=== PATIENT | female | born 2000 | race Caucasian/White ===

== ENCOUNTER 2025-02-26 12:50 | Outpatient (RCR) | payer OTHER, SELFPAY ==
[2025-02-26 14:16] LABS: Hematocrit 38.1 % (37.0-47.0); Hemoglobin 12.7 g/dL (12.0-15.0); Immature Granulocyte Percent A 1.5 % (0-0.5); Lymphocytes Absolute Auto 2.27 K/mm3 (0.9-3.2); Mean Corpuscular HGB Conc 33.3 g/dl (32-36); Mean Corpuscular Hemoglobin 29.7 pg (26-34); Mean Corpuscular Volume 89.2 fl (80-100); Nucleated Red Blood Cells Absolute Auto 0.000 K/mm3 (0.0-0.012); Nucleated Red Blood Cells Perc 0.0 % (0.0-0.2); Platelet Count Result 257 k/mm3 (150-375); Red Blood Count 4.27 M/mm3 (4.2-5.4); White Blood Count 14.0 K/mm3 (4.5-10.0)
[2025-02-26 14:20] LABS: Glucose 1 Hour PP 50gm Dose 79 mg/dL
[2025-02-26 14:52] LABS: Syphilis IgG/IgM Antibody Non-Reactive (Nonreactive)
[2025-02-26 15:00] LABS: HIV 1/2 Ab P24 Ag Result Negative (Negative)
[2025-02-27] MEDS: RHO(D) IMMUNE GLOBULIN 300 MCG/2 ML SYRINGE IM (17:42)
== END 2025-05-27 23:59 | disposition home or self-care (01) ==
LOC: ANHLAB 12:50
PROVIDERS: Visit Provider Obstetrics & Gynecology
DX: Z11.4 Encounter for screening for human immunodeficiency virus [HIV] (principal); Z11.3 Encounter for screening for infections with a predominantly sexual mode of transmission; Z29.13 Encounter for prophylactic Rho(D) immune globulin; O36.0190 Maternal care for anti-D [Rh] antibodies, unspecified trimester, not applicable or unspecified; O48.1 Prolonged pregnancy; Z3A.41 41 weeks gestation of pregnancy
CPT/HCPCS: 36415; 82947; 85025; 85461; 86593; 86703; 86850; 86900; 86901; 90384; 96372; G0432; J2790

== ENCOUNTER 2025-05-22 23:09 | Observation (INO) | payer OTHER, SELFPAY ==
[2025-05-22 23:30] VITALS: BMI 36.9
--- NOTE | 2025-05-26 08:59 | PM.OBTRLD ---
OB - Triage/Final Diagnosis Visit Information Comments/Additional reasons for admission: I have assessed the risk for this patient, Tiffany Coleman, and determined that she would benefit from observation care. Final Diagnosis (1) Abdominal pain affecting : Code(s): O26.899 - Other specified related conditions, unspecified trimester; R10.9 - Unspecified abdominal pain Status: Acute
== END 2025-05-23 01:14 | disposition home or self-care (01) ==
PROVIDERS: Admitting Provider Obstetrics & Gynecology; Visit Provider Obstetrics & Gynecology
DX: O26.93 Pregnancy related conditions, unspecified, third trimester (principal); Z3A.40 40 weeks gestation of pregnancy; R10.9 Unspecified abdominal pain
CPT/HCPCS: 59025; G0378; G0379

== ENCOUNTER 2025-05-24 16:32 | Inpatient (IN) | payer OTHER, SELFPAY ==
[2025-05-24] VITALS (117 sets, daily range): BP systolic 75–149; BP diastolic 17–115; PULSE 62–199; TEMP 36.6–37.2; O2SAT 95–100; BMI 36.9
--- NOTE | 2025-05-24 17:03 | PM.IMHP ---
H&P: HPI History of Present Illness Date/Time: 05/24/25 17:03 Chief Complaint: contractions Narrative: Tiffany is a 25yo @ 40.6wks who presented to L&D with painful contractions. She had presented last night and was only found to be 1cm, on arrival today was found to be 4cm. She reports good movement. No VB or LOF. Her is complicated by: - Rh neg; will need rhogam if bleeding and/or at 28wks - GBS positive - Elevated BPs; PIH w/u pending Review of Systems Constitutional: Constitutional: Denies chills, Denies fever(s) and Denies headache(s) Eyes: Eyes: Denies change in vision ENT: Denies headache(s) Cardiovascular: Cardiovascular: Denies chest pain and Denies dyspnea Respiratory: Respiratory: Denies dyspnea Genitourinary: Genitourinary: Denies abnormal vaginal bleeding and Denies vaginal discharge Neurologic: Denies headache(s) Psychiatric: Psychiatric: Denies anxiety and Denies depression [facility] Past Medical History Medical History Suppression of menses Family History Family History Father Diabetes mellitus Grandparent Cerebrovascular accident Alzheimers disease Social History Social History Smoking status: Never smoker Alcohol intake: never Substance use: never Substance use type: does not use Lack of Transportation: No Lack of Food: Never True Current Housing: I Have Housing Concerned About Future Housing: No Difficulty Paying Gas/Electric Bills: No Difficulty Paying for Meds: No Currently Unemployed: No Education: Decline to Answer Difficulty w/ Childcare or Family Care: No Living arrangements: with family Additional living arrangements comments: Occupation/Education: occupation Additional occupation/education comments: [employer] Gender identity (if verbalized by the patient): Female Sexual Orientation (if Verbalized by the Patient): Straight or Heterosexual Spiritual care concerns: No Meds Home Medications and Allergies Home Medications ?Medication ?Instructions ?Recorded ?Confirmed ?Type vitamins-iron fumarate 65 1 tablet PO DAILY 10/16/24 05/24/25 History mg iron-folic acid 1 mg tablet aspirin 81 mg chewable tablet 81 mg PO DAILY 11/12/24 05/24/25 History Allergies Allergy/AdvReac Type Severity Reaction Status Date / Time No Known Allergies Allergy Verified 05/24/25 17:11 Exam Const: General: cooperative, no acute distress and obese Nutritional Appearance: obese Orientation/consciousness: patient oriented x3 Resp: Effort & Inspection: normal respiratory effort Cardio: Rate: regular rate GI: GI Palp: No abdominal tenderness : Other: FHT's: 130's/ mod [place]/ + accels/ variable decels - cat 2 TOCO: ctxs q3-5min Cervix: 4/90/-1, bulging bag Membranes: intact Presentation: cephalic Skin: General skin exam: normal color Neuro: General: patient oriented x3 Extrem: General: normal to inspection Psych: Appearance: grossly normal Affect: normal affect Attitude: cooperative Assessment and Plan Assessment and plan (1) Active labor at term: Status: Acute (2) Positive GBS test: Code(s): B95.1 - Streptococcus, group B, as the cause of diseases classified elsewhere Status: Acute (3) Elevated blood pressure affecting in third trimester, antepartum: Code(s): O16.3 - Unspecified maternal hypertension, third trimester Status: Acute Plan - Admitted in labor - High dose pitocin per protocol if contractions space out - Continuous monitoring - GBS positive; ampicillin per protocol - Anesthesia consult PRN pain - PIH w/u ordered
[2025-05-24 17:15] LABS: Hematocrit 38.3 % (37.0-47.0); Hemoglobin 12.7 g/dL (12.0-15.0); Immature Granulocyte Percent A 0.9 % (0-0.5); Lymphocytes Absolute Auto 1.52 K/mm3 (0.9-3.2); Mean Corpuscular HGB Conc 33.2 g/dl (32-36); Mean Corpuscular Hemoglobin 28.3 pg (26-34); Mean Corpuscular Volume 85.3 fl (80-100); Nucleated Red Blood Cells Absolute Auto 0.000 K/mm3 (0.0-0.012); Nucleated Red Blood Cells Perc 0.0 % (0.0-0.2); Platelet Count Result 262 k/mm3 (150-375); Red Blood Count 4.49 M/mm3 (4.2-5.4); White Blood Count 15.0 K/mm3 (4.5-10.0)
--- NOTE | 2025-05-24 17:17 | LDADM ---
This patient, Tiffany Coleman, was admitted to Labor/Delivery/Recovery 106 on 05/24/25 at 16:32. Plans for labor, pain management and were discussed with patient. Patient/family oriented to hospital policies and general routines including ID bracelet, bed and alarms, visiting hours, pain management, procedures, bathroom and other care routines, personal items, smoking policy, room service/diet and guest tray routines, security routines, and visiting hours. Patient/Family are encouraged to report perceived risks to care and to ask questions if they do not understand what they are told or what they should do. See OBIX for further documentation.
[2025-05-24] MEDS: LACTATED RINGERS 1,000 ML 125 ML IV CONT ×3 (17:20→20:15)
[2025-05-24] MEDS: AMPICILLIN SODIUM 2 GM in SODIUM CHLORIDE 0.9% IV 100 ML 200 ML IVPB (17:20)
[2025-05-24 17:34] LABS: Alanine Aminotransferase 29 U/L (6-35); Albumin Level 3.9 g/dL (3.5-5.1); Alkaline Phosphatase 191 U/L (38-126); Anion Gap 7 mmol/L (4-12); Aspartate Amino Transferase 27 U/L (14-36); Bilirubin,Total 0.4 mg/dL (0.2-1.3); Blood Urea Nitrogen 14 mg/dL (7-17); Calcium 9.3 mg/dL (8.4-10.2); Carbon Dioxide 20 mmol/L (22-30); Chloride 104 mmol/L (98-107); Estimated CRCL calculation 132 ml/min; Estimated Glomerular Filt Rate > 60; Glucose 106 mg/dL (65-110); Potassium 3.9 mmol/L (3.4-5.0); Sodium 131 mmol/L (137-145); Total Protein 7.5 g/dL (6.3-8.2); Uric Acid 5.0 mg/dL (2.5-7.5)
[2025-05-24 18:00] LABS: Syphilis IgG/IgM Antibody Non-Reactive (Nonreactive)
--- NOTE | 2025-05-24 18:38 | WPDANESEPP ---
Anes - Eval Pre Procedure Procedure: Labor Epidural Date/Time: 05/24/25 18:38 Preop Diagnosis: Labor Pain Pre Op Diagnosis: IOL Patient Data Age: 25 Gender: F Height: 1.63 m Weight: 97.6 kg Last Vital Signs Temp 37.2 C 05/24/25 17:00 Pulse 80 05/24/25 18:04 BP 112/83 05/24/25 18:04 Pulse Ox 95 05/24/25 17:31 O2 Del Method Room Air 05/24/25 17:15 Allergies Allergy/AdvReac Type Severity Reaction Status Date / Time No Known Allergies Allergy Verified 05/24/25 17:11 Home Medications ?Medication ?Instructions ?Recorded ?Confirmed ?Type vitamins-iron fumarate 65 1 tablet PO DAILY 10/16/24 05/24/25 History mg iron-folic acid 1 mg tablet aspirin 81 mg chewable tablet 81 mg PO DAILY 11/12/24 05/24/25 History Laboratory Tests 05/24/25 05/24/25 17:05 17:10 WBC 15.0 H K/mm3 (4.5-10.0) RBC 4.49 M/mm3 (4.2-5.4) Hgb 12.7 g/dL (12.0-15.0) Hct 38.3 % (37.0-47.0) MCV 85.3 fl (80-100) MCH 28.3 pg (26-34) MCHC 33.2 g/dl (32-36) RDW 14.6 H % (11.5-14.5) Plt Count 262 k/mm3 (150-375) MPV 10.8 H fl (7.4-10.4) Immature Gran % (Auto) 0.9 H % (0-0.5) Neut % (Auto) 79.3 H % (45.5-73.1) Lymph % (Auto) 10.1 L % (18.3-44.2) [place] % (Auto) 9.2 H % (2.6-8.5) Eos % (Auto) 0.2 % (0-4.4) Baso % (Auto) 0.3 % (0.2-1.2) Lymph # (Auto) 1.52 K/mm3 (0.9-3.2) [place] # (Auto) 1.4 H K/mm3 (0.1-0.6) Eos # (Auto) 0.0 K/mm3 (0-0.3) Baso # (Auto) 0.0 K/mm3 (0.0-0.1) Abs Immat Gran (auto) 0.14 H K/mm3 (0.00-0.031) Absolute Neuts (auto) 11.9 H K/mm3 (1.3-6.7) Absolute Nucleated RBC 0.000 K/mm3 (0.0-0.012) Nucleated RBC % 0.0 % (0.0-0.2) Sodium 131 L mmol/L (137-145) Potassium 3.9 mmol/L (3.4-5.0) Chloride 104 mmol/L (98-107) Carbon Dioxide 20 L mmol/L (22-30) Anion Gap 7 mmol/L (4-12) BUN 14 mg/dL (7-17) Creatinine 0.63 L mg/dL (0.7-1.0) Estim Creat Clear Calc 132 ml/min Estimated GFR > 60 (59 - ) Glucose 106 mg/dL (65-110) Uric Acid 5.0 mg/dL (2.5-7.5) Calcium 9.3 mg/dL (8.4-10.2) Total Bilirubin 0.4 mg/dL (0.2-1.3) AST 27 U/L (14-36) ALT 29 U/L (6-35) Alkaline Phosphatase 191 H U/L (38-126) Total Protein 7.5 g/dL (6.3-8.2) Albumin 3.9 g/dL (3.5-5.1) Syphilis IgG/IgM Ab Non-reactive (Nonreactive) Blood Type A Negative Antibody Screen Negative Patient hx anesthesia problems: none Family hx anesthesia problems: none Results Review: All pre-operative results and documents have been reviewed as part of the pre-operative evaluation. [facility] Past Medical History Medical History Suppression of menses Family History Family History Father Diabetes mellitus Grandparent Cerebrovascular accident Alzheimers disease Social History Social History Smoking status: Never smoker Alcohol intake: never Substance use: never Substance use type: does not use Lack of Transportation: No Lack of Food: Never True Current Housing: I Have Housing Concerned About Future Housing: No Difficulty Paying Gas/Electric Bills: No Difficulty Paying for Meds: No Currently Unemployed: No Education: High School Diploma/GED Difficulty w/ Childcare or Family Care: No Living arrangements: with family Additional living arrangements comments: Occupation/Education: occupation Additional occupation/education comments: [employer] Gender identity (if verbalized by the patient): Female Sexual Orientation (if Verbalized by the Patient): Straight or Heterosexual Spiritual care concerns: No Exam Day of Procedure 05/24/25 18:38 Patient weight: normal Heart: regular rate and rhythm Lungs: normal air movement Airway: Mallampati scale class II Neurological: alert and oriented
[2025-05-24] MEDS: PHENYLEPHRINE 1,000 MCG/10 ML SYRINGE 100 MCG IV PUSH (19:04)
[2025-05-24] MEDS: AMPICILLIN SODIUM 1 GM in SODIUM CHLORIDE 0.9% IV 50 ML 100 ML IVPB (21:03)
[2025-05-24] MEDS: OXYTOCIN 30 UNITS/NS 500 ML 30 UNITS/500 ML BAG IV CONT (21:52)
[2025-05-25] VITALS (32 sets, daily range): BP systolic 123–137; BP diastolic 68–92; PULSE 73–139; RESP 16–20; TEMP 36.5–36.9; O2SAT 85–100
--- NOTE | 2025-05-25 00:36 | PM.OBPRVD ---
OB - Vaginal Delivery Note Procedure Delivery date: 05/25/25 Events: Gestational Diabetes (vs PIH (urine P/C pending)), Positive Group B Strep (GBS) and Other Intrapartal Events: Decelerations Delivery augmentation: Pitocin Route of delivery: Episiotomy description: None Laceration Description: Periurethral (right) and Perineal - 1st Degree Delivery repair: vicryl Specimen: Yes (placenta) Quantitative Blood Loss (ml): 200 Anesthesia type: Epidural Disposition: Floor Complications: No immediate complications [place] Baby Date of : 05/25/25 Time of : 00:13 Gestational Age by Date: 41 Infant gender: Male Weight (pounds): 6 Weight (ounces): 14 presentation: vertex Placenta delivery description: Expressed Cord Vessel Description: 3 Vessels score one minute: 8 score five minutes: 9 Narrative: Tiffany rapidly progressed from 6 to completely dilated and recurrent, severe variables were noted. She began pushing and had rapid descent. She delivered after 4 contractions with nursing staff (no nuchal cord was noted per nursing.) He was placed on mom's chest and spontaneous cry was heard. I arrived to bedside less than 1 minute after delivery. Delayed cord clamping was performed. The umbilical cord was then doubly clamped and cut by dad. A segment of cord was collected for cord gases. The remaining cord blood was collected for typing. With Pitocin running and gentle downward traction on the cord, the placenta delivered without complication. Bimanual massage was performed and good uterine tone with minimal bleeding was noted. She was examined and a first-degree perineal as well as a right periurethral laceration were identified. They were repaired in the normal fashion using 2-0 Vicryl. Sponge, lap, instrument, and needle counts were correct at the end the procedure. Mom and baby were left bonding in the birthing suite in stable condition.
[2025-05-25] MEDS: OXYTOCIN 30 UNITS/NS 500 ML 30 UNITS/500 ML BAG 125 UNITS IV CONT (00:53)
[2025-05-25 01:12] LABS: Total Protein Urine Random 14 mg/dL
--- NOTE | 2025-05-25 02:14 | S_PTH ---
PATIENT: Tiffany Coleman LOC: [facility] U#:[id number] AGE/SX: 25/F ROOM: 286 RE05/24/[address]: Alina May MD : 2000 BED: 00 DIS: 05/27/2025 SPEC #: [id number] RECD: 05/26/25 08:27 STATUS: DOMINICK REQ #: [id number] FLORENCIA: 05/25/25 02:[address]: Alina May DEPT: [facility] Surgical RECD BY: Trish Archer ENTERED: 05/26/25 08:28 SP TYPE: Surgical OTHR DR: Florencio Smith MD WOODWORK TEACHER PHYSICIAN Tissues: A - Placenta Procedures: Hematoxylin and Eosin Stain Gross and Microscopic Level 5
[2025-05-25] MEDS: WITCH HAZEL 40 PADS 1 PAD TOPICAL (02:33)
[2025-05-25] MEDS: BENZOCAINE 20% AER SPR (*SP) 56 GM CAN 1 SPRAY TOPICAL (02:33)
--- NOTE | 2025-05-25 08:49 | PM.OBPNVD ---
OB - PN: Subj Subjective Date/time seen: 05/25/25 08:49 Narrative: PPD#0 Tiffany reports doing well today. 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 Her pain is controlled. She is tolerating regular diet, voiding, passing gas, and ambulating without issues. She is breast feeding. She would like her son circumcised. OB - PN: Obj Data Labs 05/24/25 17:05 05/24/25 17:10 Labs: Laboratory Results - last 24 hr 05/24/25 05/24/25 05/25/25 17:05 17:10 00:50 WBC 15.0 H RBC 4.49 Hgb 12.7 Hct 38.3 MCV 85.3 MCH 28.3 MCHC 33.2 RDW 14.6 H Plt Count 262 MPV 10.8 H Immature Gran % (Auto) 0.9 H Neut % (Auto) 79.3 H Lymph % (Auto) 10.1 L [place] % (Auto) 9.2 H Eos % (Auto) 0.2 Baso % (Auto) 0.3 Lymph # (Auto) 1.52 [place] # (Auto) 1.4 H Eos # (Auto) 0.0 Baso # (Auto) 0.0 Abs Immat Gran (auto) 0.14 H Absolute Neuts (auto) 11.9 H Absolute Nucleated RBC 0.000 Nucleated RBC % 0.0 Sodium 131 L Potassium 3.9 Chloride 104 Carbon Dioxide 20 L Anion Gap 7 BUN 14 Creatinine 0.63 L Estim Creat Clear Calc 132 Estimated GFR > 60 Glucose 106 Uric Acid 5.0 Calcium 9.3 Total Bilirubin 0.4 AST 27 ALT 29 Alkaline Phosphatase 191 H Total Protein 7.5 Albumin 3.9 U Random Total Protein 14 Syphilis IgG/IgM Ab Non-reactive Blood Type A Negative Antibody Screen Negative OB - PN A/P Assessment and Plan (1) Normal vaginal delivery of first : Code(s): O80 - Encounter for full-term uncomplicated delivery Status: Acute Plan day: 0 Plan: routine care Comments: - PO pain meds - Regular diet - Ambulation and hydration encouraged - Continue putting baby to breast q2-3hr Time Spent With Patient Time: Total time spent is greater than 50% in coordination of care (as documented) at patient's floor/unit and/or counseling patient: Review of Systems Constitutional: Constitutional: Denies chills, Denies fever(s) and Denies headache(s) Eyes: Eyes: Denies change in vision ENT: Denies dizziness and Denies headache(s) Cardiovascular: Cardiovascular: Denies chest pain, Denies palpitations and Denies dyspnea Respiratory: Respiratory: Denies cough and Denies dyspnea Gastrointestinal: Gastrointestinal: Denies nausea and Denies vomiting Neurologic: Denies dizziness and Denies headache(s) Endocrine: Endocrine: Denies palpitations Exam Const: General: cooperative, comfortable and no acute distress Orientation/consciousness: patient oriented x3 Resp: Effort & Inspection: normal respiratory effort Auscultation: clear to auscultation bilaterally Cardio: Rate: regular rate GI: Inspection: non-distended GI Palp: No abdominal tenderness and Yes Soft to palpation Auscultation: normal bowel sounds : Other: fundus firm Skin: General skin exam: normal color Neuro: General: patient oriented x3 Extrem: General: normal to inspection Psych: Appearance: grossly normal Affect: normal affect Attitude: cooperative
[2025-05-25] MEDS: DOCUSATE SODIUM 100 MG CAPSULE PO ×2 (09:33→17:34)
[2025-05-25] MEDS: IBUPROFEN 600 MG TABLET PO ×2 (09:34→17:34)
[2025-05-25] MEDS: MULTIVIT/MIN/PREN/FOL AC/IRON TABLET 1 TAB PO (09:34)
[2025-05-26] VITALS (7 sets, daily range): BP systolic 120–144; BP diastolic 76–90; PULSE 75–83; RESP 16–18; TEMP 36.4–36.8; O2SAT 98–100
[2025-05-26 04:36] LABS: Hematocrit 32.5 % (37.0-47.0); Hemoglobin 10.7 g/dL (12.0-15.0); Mean Corpuscular HGB Conc 32.9 g/dl (32-36); Mean Corpuscular Hemoglobin 28.9 pg (26-34); Mean Corpuscular Volume 87.8 fl (80-100); Platelet Count Result 210 k/mm3 (150-375); Red Blood Count 3.70 M/mm3 (4.2-5.4); White Blood Count 13.2 K/mm3 (4.5-10.0)
[2025-05-26 04:51] LABS: Alanine Aminotransferase 14 U/L (6-35); Albumin Level 3.1 g/dL (3.5-5.1); Alkaline Phosphatase 119 U/L (38-126); Anion Gap 7 mmol/L (4-12); Aspartate Amino Transferase 23 U/L (14-36); Bilirubin,Total 0.1 mg/dL (0.2-1.3); Blood Urea Nitrogen 13 mg/dL (7-17); Calcium 8.6 mg/dL (8.4-10.2); Carbon Dioxide 21 mmol/L (22-30); Chloride 106 mmol/L (98-107); Estimated CRCL calculation 119 ml/min; Estimated Glomerular Filt Rate > 60; Glucose 92 mg/dL (65-110); Potassium 4.0 mmol/L (3.4-5.0); Sodium 134 mmol/L (137-145); Total Protein 6.1 g/dL (6.3-8.2)
--- NOTE | 2025-05-26 07:09 | P.PNOB_ITS ---
OB - PN: Subj Subjective Date/time seen: 05/26/25 07:17 Narrative: PPD#1 Tiffany reports doing well today. Her bleeding is artificial cherry maker. Her pain is controlled. She is tolerating regular diet, voiding, passing gas, and ambulating without issues. She is breast feeding. She would like her son circumcised. OB - PN: Obj Data Labs 05/26/25 03:48 05/26/25 03:47 Labs: Laboratory Results - last 24 hr 05/24/25 05/24/25 05/25/25 17:05 17:10 00:50 WBC 15.0 H RBC 4.49 Hgb 12.7 Hct 38.3 MCV 85.3 MCH 28.3 MCHC 33.2 RDW 14.6 H Plt Count 262 MPV 10.8 H Immature Gran % (Auto) 0.9 H Neut % (Auto) 79.3 H Lymph % (Auto) 10.1 L [place] % (Auto) 9.2 H Eos % (Auto) 0.2 Baso % (Auto) 0.3 Lymph # (Auto) 1.52 [place] # (Auto) 1.4 H Eos # (Auto) 0.0 Baso # (Auto) 0.0 Abs Immat Gran (auto) 0.14 H Absolute Neuts (auto) 11.9 H Absolute Nucleated RBC 0.000 Nucleated RBC % 0.0 Sodium 131 L Potassium 3.9 Chloride 104 Carbon Dioxide 20 L Anion Gap 7 BUN 14 Creatinine 0.63 L Estim Creat Clear Calc 132 Estimated GFR > 60 Glucose 106 Uric Acid 5.0 Calcium 9.3 Total Bilirubin 0.4 AST 27 ALT 29 Alkaline Phosphatase 191 H Total Protein 7.5 Albumin 3.9 U Random Total Protein 14 Syphilis IgG/IgM Ab Non-reactive Blood Type A Negative Antibody Screen Negative OB - PN A/P Assessment and Plan (1) Normal vaginal delivery of first : Code(s): O80 - Encounter for full-term uncomplicated delivery Status: Acute Plan day: 1 Plan: routine care Comments: - PO pain meds - Regular diet - Ambulation and hydration encouraged - Continue putting baby to breast q2-3hr - BPs in normal range, asymptomatic - will await void by baby before performing circ Time Spent With Patient Time: Total time spent is greater than 50% in coordination of care (as documented) at patient's floor/unit and/or counseling patient: Review of Systems 2 Constitutional: Constitutional: Denies chills, Denies fever(s) and Denies headache(s) Eyes: Eyes: Denies change in vision ENT: Denies dizziness and Denies headache(s) Cardiovascular: Cardiovascular: Denies chest pain, Denies palpitations and Denies dyspnea Respiratory: Respiratory: Denies cough and Denies dyspnea Gastrointestinal: Gastrointestinal: Denies nausea and Denies vomiting Neurologic: Denies dizziness and Denies headache(s) Endocrine: Endocrine: Denies palpitations Exam 2 Const: General: cooperative, comfortable and no acute distress O rientation/consciousness: patient oriented x3 Resp: Effort & Inspection: normal respiratory effort Auscultation: clear to auscultation bilaterally Cardio: Rate: regular rate GI: Inspection: non-distended GI Palp: No abdominal tenderness and Yes Soft to palpation Auscultation: normal bowel sounds : Other: fundus firm Skin: General skin exam: normal color Neuro: General: patient oriented x3 Extrem: General: normal to inspection Psych: Appearance: grossly normal Affect: normal affect Attitude: c ooperative
[2025-05-26] MEDS: MULTIVIT/MIN/PREN/FOL AC/IRON TABLET 1 TAB PO (09:00)
[2025-05-26] MEDS: IBUPROFEN 600 MG TABLET PO (09:00)
--- NOTE | 2025-05-26 11:15 | PC.NURSE ---
Breast pump provided due to [ with decreased urine output and provider order to supplement after ]. Instructions given on cleaning (basin,bottle brush,soap given), care, usage, that there should be no pain, pumping schedule for milk production, collection, and storage of human milk. Patient was assessed for correct placement, flange size (21mm), to pump for adequate milk production every 3 hours (8 times in 24 hours) or as often as desired. Patient feels that infant is latching well but that her nipples are sore. The nipple face is bruised and may be an indicator that baby is not latched appropriately for adequate milk transfer. Patient has a breast pump at home. Mother voiced understanding of the education shared along with mom/baby guide and the pump measurement, flange fit handout for additional resource information. Reported to the Primary RN.
[2025-05-26] MEDS: RHO(D) IMMUNE GLOBULIN 300 MCG/2 ML SYRINGE IM (14:45)
--- NOTE | 2025-05-26 14:50 | PC.NURSE ---
2 Vials of Rhogam given, one in the left deltoid and one in the right deltoid
[2025-05-26] MEDS: DOCUSATE SODIUM 100 MG CAPSULE PO (16:42)
[2025-05-27 04:03] VITALS: BP 128/86
--- NOTE | 2025-05-27 07:09 | P.DS_ITS ---
DS: Admitting Diagnosis Discharge Date 05/27/25 Admitting Diagnosis Active labor at term DS: Discharge Diagnosis Discharge Diagnosis (1) Normal vaginal delivery of first : Code(s): O80 - Encounter for full-term uncomplicated delivery Status: Acute (2) Gestational hypertension: Code(s): O13.9 - Gestational [-induced] hypertension without significant proteinuria, unspecified trimester Status: Acute OB - DS: Summary OB Procedures : Ultrasound OB Procedures Intrapartum: Spontaneous Vag Delivery OB Procedures: : RHo (D) lg Peripartum Data Infant Delivery Method: Natural Vaginal Laceration Description: Periurethral (right) and Perineal - 1st Degree Episiotomy description: None complications: none [place] 1: Gender: Male Disposition of : home Status at Discharge Functional status at discharge: independent ambulation Overall status at discharge: patient is back to baseline Time Spent with Patient Time attestation: Total time spent providing and/or coordinating discharge services: Exam Const: General: cooperative, comfortable, no acute distress and obese Nutritional Appearance: obese Orientation/consciousness: patient oriented x3 Resp: Effort & Inspection: normal respiratory effort Auscultation: clear to auscultation bilaterally Cardio: Rate: regular rate GI: Inspection: non-distended GI Palp: No abdominal tenderness and Yes Soft to palpation Auscultation: normal bowel sounds : Other: fundus firm Skin: General skin exam: normal color Neuro: General: patient oriented x3 Extrem: General: normal to inspection Psych: Appearance: grossly normal Affect: normal affect Attitude: cooperative DS: Data Data Completed and Pending Pending studies at discharge: Pending at discharge 05/25/25 02:14 Surgical [PTH] Routine Labs on day of discharge: Labs from last 24 hours 05/26/25 05/26/25 05/25/25 03:48 03:47 00:50 WBC 13.2 H RBC 3.70 L Hgb 10.7 L Hct 32.5 L MCV 87.8 MCH 28.9 MCHC 32.9 RDW 14.9 H Plt Count 210 MPV 10.7 H Sodium 134 L Potassium 4.0 Chloride 106 Carbon Dioxide 21 L Anion Gap 7 BUN 13 Creatinine 0.71 Estim Creat Clear Calc 119 Estimated GFR > 60 Glucose 92 Calcium 8.6 Total Bilirubin 0.1 L AST 23 ALT 14 Alkaline Phosphatase 119 Total Protein 6.1 L Albumin 3.1 L Ur Random Creatinine 61.6 Blood Type A Negative Antibody Screen Negative Screen Not Reportable Baby's Blood Type Ab pos Baby's SLOAN Positive KB Hemoglobin Positive Doses of RhIg Required 2 Discharge Plan Discharge Attending physician on discharge: Alina May Discharging Clinician: Alina May Patient Disposition: Home Activity: may shower and pelvic rest Diet: regular Patient Instructions: Vaginal Delivery (DC) Patient Language: Ecuad[place] Stand Alone Forms: General Discharge Information Follow-up/Referrals: Alina May MD [Physician, TURBINE TECHNICIAN] - 4 Weeks Discharge Medications: New acetaminophen 325 mg Tablet 650 mg PO Q6H PRN (Reason: Mild Pain (1-3) Or Headache) Qty: 60 0RF docusate sodium 100 mg Capsule 100 mg PO BID PRN (Reason: Constipation) Qty: 90 0RF ibuprofen 600 mg Tablet 600 mg PO Q6H PRN (Reason: Cramping) Qty: 40 0RF Continued vit-iron fum-folic ac 65 mg iron- 1 mg tablet 1 tablet PO DAILY Discontinued aspirin 81 mg tablet,chewable 81 mg PO DAILY Date of admission: 05/24/25 16:32 Primary Care Provider: PHYSICIAN,HUMID SYSTEM OPERATOR Admitting Provider: Florencio Smith Attending physician on admission: Florencio Smith Condition: Stable
[2025-05-27 07:20] VITALS: BP 120/74; PULSE 85; RESP 18; TEMP 36.9; O2SAT 98
--- NOTE | 2025-05-27 07:30 | PC.NURSE ---
Patient called out about some questions. She pumped more milk from the left breast and less from the right. Reviewed normal production and expected volumes in the early period. We also reviewed plugged ducts and how to resolve them along with using the Mom/Baby Guide for reference on plugged ducts, mastitis and engorgement. Patient has primary pumped and bottle fed since last night. Primary RN updated.
--- NOTE | 2025-05-27 08:14 | WPDANLDPN2 ---
Anes-Prog Note L&D Date/Time: 05/27/25 08:14 Comfortable throughout: labor and delivery Neuraxial method: epidural Epidural/Spinal procedure site: clean & non-tender Neuro status: Neuro function grossly intact. Cardiovascular status: normal Respiratory status: normal Airway patency: baseline Mental status: baseline Post-Op hydration status: normal Vital Signs: Last Vital Signs Temp 97.6 F 05/26/25 18:47 Pulse 81 05/26/25 18:47 Resp 18 05/26/25 18:47 BP 128/86 05/27/25 04:03 Pulse Ox 99 05/26/25 18:47 O2 Del Method Room Air 05/26/25 18:47 Pain score (VAS): 0/10 I/O: Intake & Output 05/26/25 05/27/25 05/27/25 23:59 07:59 15:59 Intake Total 450 Output Total 650 2650 Balance -200 -2650 Post-procedural complaints: none Patient feedback: Patient satisfied with anesthetic care.
[2025-05-27] MEDS: DOCUSATE SODIUM 100 MG CAPSULE PO (09:19)
[2025-05-27] MEDS: MULTIVIT/MIN/PREN/FOL AC/IRON TABLET 1 TAB PO (09:19)
--- NOTE | 2025-05-27 10:30 | PC.NURSE ---
Consulted with mother concerning needs and she shared her ability to independently latch infant. Mother is feeding appropriately for growth of and understands stimulating infant to eat if needed. She is pumping after and supplementing with pumped milk and formula. Infant has had appropriate feedings in the last 24 hours meets the outcomes for weight, output, blood sugar and jaundice at this time. Reinforced understanding of milk production, transition of milk, signs of adequate intake, prevention/relief of engorgement, plugged ducts, mastitis, responsive watching for feeding cues, community resources (outpatient services, declined [facility] referral), and when to call a provider using the resource of the feeding sheet along with the mom and baby guide. Mother voiced understanding of the information shared, is confident to continue effectively her at home, when to call for assistance, denies any additional assistance or education at this time. Reported to the Primary RN.
[2025-05-27 11:43] VITALS: BP 136/78; PULSE 88; RESP 16; TEMP 36.8; O2SAT 98
[2025-05-27] MEDS: TETANUS,DIPHTHERIA,AC PERTUSSIS ADULT (0.5 ML) BOOSTRIX IM (12:11)
[2025-05-27] MEDS: INFLUENZA VACCINE 45 MCG/0.5 ML SYRINGE IM (12:13)
[2025-05-28 11:21] VITALS: BP 140/83; PULSE 78; RESP 18; TEMP 36.8; O2SAT 100
== END 2025-05-27 12:54 | disposition home or self-care (01) | DRG 807 ==
LOC: ANHLDR 18:05 → ANHOB2 05-25 10:10 → ANHLDR 05-28 11:31
PROVIDERS: Admitting Provider Obstetrics & Gynecology; Visit Provider Obstetrics & Gynecology
DX: O13.4 Gestational [pregnancy-induced] hypertension without significant proteinuria, complicating childbirth (principal); Z37.0 Single live birth; Z3A.41 41 weeks gestation of pregnancy; O99.824 Streptococcus B carrier state complicating childbirth; O70.0 First degree perineal laceration during delivery; O26.893 Other specified pregnancy related conditions, third trimester; Z67.91 Unspecified blood type, Rh negative; O76 Abnormality in fetal heart rate and rhythm complicating labor and delivery; O71.82 Other specified trauma to perineum and vulva; Z23 Encounter for immunization
CPT/HCPCS: 36415; 59025; 80053; 81050; 82570; 84156; 84550; 85025; 85027; 85460; 85461; 86593; 86850; 86900; 86901; 88307; 90384; 90471; 90656; 90715; A9270; G0008; G0378; G0379; J0290; J2371; J2590; J2790; J2795; J7120